=== PATIENT | female | born 1980 | race African-American/Black ===

== ENCOUNTER 2018-02-27 20:57 | Emergency (ER) | payer OTHER ==
[~2018-02-27] VITALS: Ht 190.5 cm; Wt 95.3 kg
[~2018-02-27 20:57] MED LIST: ATIVAN1 MG PO; CARAFATE 1 GM TA1 GM PO; CIPRO; CIPROFLOXACIN500 M1 PO; CIPROFLOXACIN500 M3 PO; FLAGYL500 M1 PO; FLAGYL500 MG; FLAGYL500 MG PO; GLUCOPHAGE1000 MG; GLUMETZA500; HYDROCHLOROTH12.5 M1 PO; HYDROCODON-ACE1 EACH; IBUPROFEN 800800 M1; NORCO 5-325 TA1 EACH PO; PREDNISONE 10 M10 M1 PO; PRILOSEC 20 MG20 MG PO; TRAMADOL 50 MG50 MG PO; ULTRAM 50MG TAB50 MG PO; VICODIN; VICOPROFEN 2001 EACH PO; VISTARIL 25 MG25 M1 PO; XANAX 0.25 MG0.25 MG PO; ZOLOFT50 MG
[2018-02-27] MEDS ORDERED: PROTONIX 20 MG20 M1 (21:07)
[2018-02-27 22:24] VITALS: BP 130/84
== END 2018-02-27 22:25 | disposition home or self-care (01) ==
LOC: M.ERS 20:57
DX: S93.402A Sprain of unspecified ligament of left ankle, initial encounter (principal); I10 Essential (primary) hypertension; F41.9 Anxiety disorder, unspecified; K21.9 Gastro-esophageal reflux disease without esophagitis; E89.0 Postprocedural hypothyroidism; F17.210 Nicotine dependence, cigarettes, uncomplicated; W10.9XXA Fall (on) (from) unspecified stairs and steps, initial encounter; Y93.89 Activity, other specified; Y92.89 Other specified places as the place of occurrence of the external cause; Y99.8 Other external cause status

== ENCOUNTER 2018-07-03 05:15 | Emergency (ER) | payer OTHER ==
[~2018-07-03] VITALS: Ht 190.5 cm; Wt 97.5 kg
[~2018-07-03 05:15] MED LIST changes: +PROTONIX 20 MG20 M1
[2018-07-03 05:36] LABS: ABSOLUTE BASOPHILS 0.1 thou/uL (0.0-0.2); ABSOLUTE EOSINOPHILS 0.1 thou/uL (0.0-0.7); ABSOLUTE LYMPHOCYTES 4.1 thou/uL (0.8-5.3); ABSOLUTE MONOCYTES 0.5 thou/uL (0.0-1.2); ABSOLUTE NEUTROPHILS 3.8 thou/uL (1.6-8.1); EOSINOPHILS 1.7 %; HEMATOCRIT 34.7 % (37.0-47.0); HEMOGLOBIN 11.2 gm/dL (12.0-15.0); LYMPHOCYTES 47.6 %; MCH 27.8 pg (26.0-34.0); MCHC 32.4 g/dL (28.0-37.0); MCV 85.7 fL (80.0-100.0); MONOCYTES 5.4 %; MPV 8.4 fl. (7.2-11.1); NUCLEATED RBCS 0 /100WBC; PLATELET COUNT* 397 thou/uL (150-400); POLYS 44.3 %; RBC 4.04 mil/uL (4.20-5.00); RDW-CV 15.5 % (10.5-14.5); WBC 8.6 thou/uL (4.0-11.0)
[2018-07-03 05:46] LABS: ANION GAP 9 mmol/L (7-16); BUN 12 mg/dL (7-18); CALCIUM 9.1 mg/dL (8.5-10.1); CHLORIDE 103 mmol/L (98-107); CO2 29 mmol/L (21-32); CREATININE 1.1 mg/dL (0.6-1.3); GLUCOSE 98 mg/dL (70-99); SODIUM 141 mmol/L (136-145)
[2018-07-03 06:01] LABS: ALBUMIN 3.6 g/dL (3.4-5.0); ALKALINE PHOSPHATASE 73 U/L (46-116); LIPASE 166 U/L (73-393); MAGNESIUM 1.9 mg/dL (1.8-2.4); NT-PRO BRAIN NAT PEPTIDE 52 pg/mL (<300); SGOT 19 U/L (15-37); SGPT 25 U/L (30-65); TOTAL BILIRUBIN 0.1 mg/dL (<0.1-1.0); TOTAL PROTEIN 7.6 g/dL (6.4-8.2); TROPONIN-I LEVEL <0.06 ng/mL (<0.06)
[2018-07-03 08:18] VITALS: BP 125/68
--- NOTE | 2018-07-04 15:34 | EKG ---
[place] [address] ELECTROCARDIOGRAM REPORT Name: CRISTOBAL CARDENAS Room: [facility]#: [id number] Admission: 07/03/18 Attend Phys: Discharge: 07/03/18 Date of : 82 Report #: [id number] THIS REPORT FOR: //name// [facility] ED Test Date: 2018-07-03 Test Time: 05:19:02 Pat Name: CRISTOBAL CARDENAS Department: Room: Gender: F Realtime Reporter: EVELIA : 1980 Requested By: Gonsalo Blair Order Number: [id number] MD: Jose Piña Measurements Intervals [place] Rate: 99 P: 77 CA: 182 QRS: 22 QRSD: 98 T: 29 QT: 370 QTc: 475 Interpretive Statements Sinus rhythm Abnormal R-wave progression, early transition Borderline T abnormalities, anterior leads Compared to ECG 07/16/2015 20:18:05 T-wave abnormality now present Electronically Signed On 07-04-2018 15:34:16 DEPUTY CHIEF EXECUTIVE by Jose Piña [email or web address] <ELECTRONICALLY SIGNED> By: Jose Piña MD, [facility] 07/04/18 1534 0519 8 Jose Piña MD, [facility] /EPI
== END 2018-07-03 08:18 | disposition home or self-care (01) ==
LOC: M.ERS 05:15
PROVIDERS: Emergency Medicine Emergency Medical Services
DX: R07.89 Other chest pain (principal); R42 Dizziness and giddiness; F41.9 Anxiety disorder, unspecified; I10 Essential (primary) hypertension; K21.9 Gastro-esophageal reflux disease without esophagitis; E89.0 Postprocedural hypothyroidism; F17.210 Nicotine dependence, cigarettes, uncomplicated

== ENCOUNTER 2019-08-23 08:22 | Emergency (ER) | payer OTHER ==
[~2019-08-23] VITALS: Ht 190.5 cm; Wt 99.3 kg
[2019-08-23 09:18] LABS: INFLUENZA A ANTIGEN Negative (Negative); INFLUENZA B ANTIGEN Negative (Negative)
[2019-08-23] MEDS ORDERED: TRAMADOL 50 MG50 MG PO (09:24)
[2019-08-23 09:28] VITALS: BP 150/90
== END 2019-08-23 09:29 | disposition home or self-care (01) ==
LOC: M.ERS 08:22
PROVIDERS: Emergency Medicine
DX: J06.9 Acute upper respiratory infection, unspecified (principal); I10 Essential (primary) hypertension; K21.9 Gastro-esophageal reflux disease without esophagitis; F17.210 Nicotine dependence, cigarettes, uncomplicated